=== PATIENT | male | born 1945 | race Caucasian/White ===

== ENCOUNTER → 2017-01-06 | Outpatient (CLI) | payer OTHER ==
--- NOTE | ~2017-01-06 | US135 ---
[facility] A Service of [facility] RADIOLOGY TEXT RESULTS PATIENT: OCTAVIA TAVAREZ GENE LOCATION: CNIV : 47 UNIT #: [id number] AGE: [address]: Susana Werner SEX: M ORDER DR: [id number] [facility] [address], [place] [address] [id number] O MR#: [id number] Acc #: [id number] NAME: OCTAVIA TAVAREZ : 1945 SEX: M STUDY DATE/TIME: 01/06/2017 12:23 UNIT: CNIV ROOM: STUDY DESCRIPTION: US U/L Ext Art Study Comp Bryan Attending Physician: Susana Werner A.P.R.N. Referring Physician: Susana Werner A.P.R.N. Ordering Physician: Susana Werner A.P.R.N. Primary Care Physician: Kareen Santos M.D. MEDICAL IMAGING REPORT This report is preliminary unless electronic signature is present EXAM Lower extremity arterial segmental pressures date of examination 01/06/2017 HISTORY Right leg claudication. FINDINGS The right brachial pressure is 179 and the left brachial pressure is 171. The right upper thigh pressure is greater than 260, lower thigh 188, calf 178, dorsalis pedis 112, posterior tibial 113, and toe 71 for an ankle to brachial index of 0.63. The left upper thigh pressure is greater than 260, lower thigh 244, calf 183, dorsalis pedis 181, posterior tibial 175, and toe 142 for an ankle to brachial index of 1.01. Pulse volume recording tracings demonstrate damping of the amplitude of the signal from the calf to the ankle level on both sides. Doppler waveform analysis indicates a monophasic signal in the right posterior tibial and dorsalis pedis arteries and a biphasic signal I the left posterior tibial and dorsalis pedis arteries. IMPRESSION Moderate ischemia of the right leg with an ankle to brachial index of 0.63. Normal perfusion of the left leg with an ankle to brachial index of 1.01. 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 STS. [facility] A Service of [facility] RADIOLOGY TEXT RESULTS PATIENT: OCTAVIA TAVAREZ LOCATION: CN[facility] : 46 UNIT #: [id number] AGE: [address]: Susana Werner SEX: M ORDER DR: Dictated by... Bo Bobo M.D. THIS IS AN ELECTRONICALLY VERIFIED REPORT Bo Bobo M.D. at 01/07/2017 9:35 AM GISELLA/ruthier TD: 01/06/2017 16:25 JOB #: [id number] MEDICAL IMAGING REPORT Page 1 of 1 COPY
--- NOTE | ~2017-01-06 | US37 ---
[facility] A Service of [facility] RADIOLOGY TEXT RESULTS PATIENT: OCTAVIA TAVAREZ GENE LOCATION: [facility] : 46 UNIT #: [id number] AGE: [address]: Susana Werner SEX: M ORDER DR: [id number] [facility] [address] [place], [place] [address] [id number] O MR#: [id number] Acc #: [id number] NAME: OCTAVIA TAVAREZ : 1945 SEX: M STUDY DATE/TIME: 01/06/2017 12:30 UNIT: CNIV ROOM: STUDY DESCRIPTION: US Carotid W/Doppler Bilateral Attending Physician: Susana Werner A.P.R.N. Referring Physician: Susana Werner A.P.R.N. Ordering Physician: Susana Werner A.P.R.N. Primary Care Physician: Kareen Santos M.D. MEDICAL IMAGING REPORT This report is preliminary unless electronic signature is present EXAM Carotid duplex scan. DATE OF EXAMINATION 01/06/2017 HISTORY Carotid stenosis. FINDINGS The right common carotid artery has heterogeneous dense plaque which extends up into the proximal internal and external carotid arteries. Peak systolic velocity in the distal right internal carotid artery is 137 cm/sec with an end-diastolic velocity of 38 cm/sec. The ICA/CCA ratio on the right is 0.70. Peak systolic velocity in the right external carotid artery is 128 cm/sec. The right vertebral artery is patent with antegrade flow. The left common carotid artery has a large amount of heterogeneous dense plaque. There is heterogeneous dense plaque in the left carotid bulb which extends up into the proximal internal and external carotid arteries. Peak systolic velocity in the proximal left internal carotid artery is 245 cm/sec with an end-diastolic velocity of 98 cm/sec. The ICA/CCA ratio on the left is 0.80. Peak systolic velocity in the left external carotid artery is 100 cm/sec. The left vertebral artery is patent with antegrade flow. IMPRESSION Moderate stenosis (50% to 69%) of the right internal carotid artery. Severe stenosis (greater than or equal to 70%) of the left internal carotid artery. No significant stenosis of the external carotid arteries on either side. Patient vertebral arteries bilaterally with antegrade STS. [facility] A Service of [facility] RADIOLOGY TEXT RESULTS PATIENT: OCTAVIA TAVAREZ LOCATION: CN[facility] : 46 UNIT #: [id number] AGE: [address]: Susana Werner SEX: M ORDER DR: flow. The left internal carotid artery stenosis appears to have gotten worse compared to the previous study performed on 06/15/2016 when it was felt to be between 50% and 69%. Dictated by... Bo Bobo M.D. THIS IS AN ELECTRONICALLY VERIFIED REPORT Bo Bobo M.D. at 01/07/2017 9:35 AM GISELLA/madi TD: 01/06/2017 16:34 JOB #: [id number] MEDICAL IMAGING REPORT Page 1 of 1 COPY
== END | disposition home or self-care (01) ==
LOC: CNIV 12-31 15:00
DX: I65.23 Occlusion and stenosis of bilateral carotid arteries (principal); I73.9 Peripheral vascular disease, unspecified; I99.8 Other disorder of circulatory system
CPT/HCPCS: 93880; 93923

== ENCOUNTER → 2017-01-27 | Outpatient (CLI) | payer OTHER ==
[2017-01-27 14:42] LABS: GLOM FILT RATE Estimated 75.4 mL/min (>60)
== END | disposition home or self-care (01) ==
LOC: CLAB 13:59
PROVIDERS: Registered Nurse
DX: I65.23 Occlusion and stenosis of bilateral carotid arteries (principal)
CPT/HCPCS: 36415; 82565; 84520

== ENCOUNTER → 2017-02-02 | Outpatient (CLI) | payer OTHER ==
--- NOTE | ~2017-02-02 | CT17 ---
[facility] A Service [facility] RADIOLOGY TEXT RESULTS PATIENT: OCTAVIA TAVAREZ LOCATION: [facility] : 46 UNIT #: [id number] AGE: [address]: Susana Werner SEX: M ORDER DR: [id number] [place] [address] [place], [place] [address] [id number] O MR#: [id number] Acc #: [id number] NAME: OCTAVIA TAVAREZ : 1945 SEX: M STUDY DATE/TIME: 02/02/2017 13:27 UNIT: [facility] ROOM: STUDY DESCRIPTION: CT Angio Head Attending Physician: Susana Werner A.P.R.N. Referring Physician: Susana Werner A.P.R.N. Ordering Physician: Susana Werner A.P.R.N. Primary Care Physician: Kareen Santos M.D. MEDICAL IMAGING REPORT This report is preliminary unless electronic signature is present EXAM Head CT angiogram with contrast, 02/02/2017. PROCEDURE Axial contrasted enhanced head and neck CT angiogram with three-dimensional reformats. This CT exam was performed with one or more of the following radiation dose reduction techniques: automatic exposure control, adjustment of mA and/or kV according to patient size, and iterative reconstruction. COMPARISON Neck CT angiogram dated 08/08/2009. CLINICAL HISTORY Bilateral carotid stenosis and, based on prior testing with 5-6 year history of postural dizziness. FINDINGS Please see CTA head and neck performed 02/02/2017 for results. Dictated by... Corby Dejesus M.D. THIS IS AN ELECTRONICALLY VERIFIED REPORT Corby Dejesus M.D. at 02/05/2017 4:06 PM LINDA/seamus TD: 02/03/2017 18:53 JOB #: [id number] MEDICAL IMAGING REPORT [facility] A Service [facility] RADIOLOGY TEXT RESULTS PATIENT: OCTAVIA TAVAREZ LOCATION: [facility] : 46 UNIT #: [id number] AGE: [address]: Susana Werner SEX: M ORDER DR: Page 1 of 1 COPY
--- NOTE | ~2017-02-02 | CT23 ---
[facility] A Service of [facility] RADIOLOGY TEXT RESULTS PATIENT: OCTAVIA TAVAREZ LOCATION: [facility] : 47 UNIT #: [id number] AGE: [address]: Susana Werner SEX: M ORDER DR: [id number] [facility] [address] [place], [place] [address] [id number] O MR#: [id number] Acc #: [id number] NAME: OCTAVIA TAVAREZ : 1945 SEX: M STUDY DATE/TIME: 02/02/2017 13:27 UNIT: [facility] ROOM: STUDY DESCRIPTION: CT Angio Neck Attending Physician: Susana Werner A.P.R.N. Referring Physician: Susana Werner A.P.R.N. Ordering Physician: Susana Werner A.P.R.N. Primary Care Physician: Kareen Santos M.D. MEDICAL IMAGING REPORT This report is preliminary unless electronic signature is present EXAM CT angiogram of the neck HISTORY Bilateral carotid stenosis. Abnormal carotid Doppler study 01/06/2017. Patient has a history of dizziness with bending over and standing up for 5-6 years, diabetes, and hypertension. COMMENT Please see CT angiogram of the head for results. Dictated by... Hanane Miller M.D. THIS IS AN ELECTRONICALLY VERIFIED REPORT Hanane Miller M.D. at 02/09/2017 7:13 AM HENRY/althea TD: 02/06/2017 09:16 JOB #: [id number] MEDICAL IMAGING REPORT Page 1 of 1 COPY
[2017-02-02 14:51] LABS: POC - CREATININE 0.91 mg/dL (0.64-1.27); POC - GFR >60.0 mL/min (>60)
== END | disposition home or self-care (01) ==
LOC: CCAT 12:20
PROVIDERS: Registered Nurse
DX: I65.23 Occlusion and stenosis of bilateral carotid arteries (principal); I66.9 Occlusion and stenosis of unspecified cerebral artery
CPT/HCPCS: 70496; 70498; 82565; Q9967